=== PATIENT | male | born 1970 | race Caucasian/White ===

== ENCOUNTER → 2018-08-10 17:07 | Outpatient (CLI) | payer OTHER, SELFPAY ==
--- NOTE | 2018-08-10 | DI.MRI.S_ITS ---
PROCEDURE: MR KNEE RT WO CON INDICATIONS: SPRAIN OF MEDIAL COLLTERAL LIGAMENT OF RIGHT KNEE TECHNIQUE: Noncontrast sagittal PD fast spin echo and T2 fast spin echo with fat saturation, sagittal 3-D FLASH with fat saturation; coronal T1 spin echo and PD fast spin echo with fat saturation, and axial PD fast spin echo with fat saturation through the knee. COMPARISON: None. FINDINGS: Image quality: Excellent. Menisci: There is an oblique tear involving posterior horn of medial meniscus extending to inferior articulating surface best seen on series 10 image 24 and 25. There is no focal lateral meniscal tear The meniscal root ligaments appear intact. Cruciate ligaments: The anterior and posterior cruciate ligaments appear intact. Medial structures: The medial collateral ligament appears intact. The posterior oblique ligament, semimembranosus tendon insertions, oblique popliteal ligament, and meniscocapsular junction appear intact. Visualized portions of the pes anserinus tendons appear normal. No abnormal bursal fluid. Lateral structures: The lateral collateral ligament, long and short heads of the biceps femoris tendon appear intact. The popliteus tendon appears normal; the popliteofibular ligament appears intact. The posterosuperior and anteroinferior popliteomeniscal fascicles appear intact. The arcuate and fabellofibular ligaments appear intact, on either side of the lateral inferior geniculate artery. Iliotibial band appears normal. Anterior structures: The quadriceps and patellar tendons appear intact. Patellar alignment is normal. No femoral trochlear dysplasia or ventral trochlear prominence. No edema in the infrapatellar fat pad. Bones and cartilage: No bone marrow contusions or fractures. The cartilage of the medial and lateral femorotibial compartments, as well as the patellofemoral compartment, appears normal in thickness. Joint space: There is small amount of joint fluid, no gross loose body. No Bustamante's cyst. Normal appearing synovial plicae are incidentally noted. IMPRESSION: 1. Oblique tear involving posterior horn of medial meniscus extending to inferior articulating surface. No focal lateral meniscal tear. 2. No marrow edema. No fracture or dislocation. Small amount of joint fluid, no gross loose body. 3. Cruciate ligaments are intact. Dictated by: Gavin Pena M.D. on 08/11/2018 at 8:43 Approved by: Gavin Pena M.D. on 08/11/2018 at 8:56
== END ==
PROVIDERS: Visit Provider Physician Assistant Medical
DX: S83.241A Other tear of medial meniscus, current injury, right knee, initial encounter (principal)
CPT/HCPCS: 73721